=== PATIENT | female | born 1990 | race Caucasian/White ===

== ENCOUNTER 2019-10-18 13:40 | Inpatient (IN) | payer OTHER ==
[~2019-10-18] VITALS: Ht 152.4 cm; Wt 64.9 kg
[2019-10-18] MEDS ORDERED: RINGERS SOLUTION,LACTATED 1,000 ML IV SCH (14:19)
[2019-10-18] MEDS ORDERED: RINGERS SOLUTION,LACTATED 1,000 ML IV PRN (14:19)
[2019-10-18] MEDS ORDERED: OXYTOCIN 30 UNITS/LACT RINGERS 500 ML IV ONE (14:19)
[2019-10-18] MEDS ORDERED: RINGERS SOLUTION,LACTATED 1,000 ML IV ONE (14:28)
[2019-10-18] MEDS ORDERED: MISOPROSTOL 25 MCG TABLET PO SCH (14:30)
[2019-10-18] MEDS ORDERED: METOCLOPRAMIDE HCL 5 MG/ML 2 ML VIAL IVP PRN (14:30)
[2019-10-18] MEDS ORDERED: FentaNYL CITRATE-PF 100 MCG/2 ML VIAL IVP PRN (14:30)
[2019-10-18] MEDS ORDERED: METHYLERGONOVINE MALEATE 0.2 MG/ML VIAL IM PRN (14:30)
[2019-10-18] MEDS ORDERED: CITRIC ACID/SODIUM CITRATE 30 ML SOLUTION UDCUP PO PRN (14:30)
[2019-10-18] MEDS ORDERED: TERBUTALINE SULFATE 1 MG/ML VIAL SQ PRN (14:30)
[2019-10-18 15:10] LABS: BASOPHILS % (AUTO) 0.3 % (0.0-2.0); EOSINOPHILS % (AUTO) 0.3 % (1.0-6.0); HEMATOCRIT 35.6 % (36-46); HEMOGLOBIN 11.6 g/dL (12.0-16.0); LYMPHOCYTES # (AUTO) 1.7 K/uL (1.0-4.8); LYMPHOCYTES % (AUTO) 19.8 % (22.0-44.0); MEAN CORPUSCULAR HEMOGLOBIN 26.9 pg (26.0-34.0); MEAN CORPUSCULAR HGB CONC 32.7 G/dL (31.0-37.0); MEAN CORPUSCULAR VOLUME 82 fL (80-100); MONOCYTES # (AUTO) 0.6 K/uL (0.1-1.0); MONOCYTES % (AUTO) 6.5 % (2.0-9.0); NEUTROPHILS # (AUTO) 6.2 K/uL (1.8-7.7); NEUTROPHILS % (AUTO) 73.1 % (40.0-70.0); PLATELET COUNT (AUTO)-OB 258 K/uL (150-450); RED BLOOD CELL COUNT(AUTO) 4.33 MIL/uL (4.00-5.20)
[2019-10-18 15:42] VITALS: BP 105/65
[2019-10-18] MEDS: RINGERS SOLUTION,LACTATED 1,000 ML IV SCH ×3 (16:07→23:23)
[2019-10-18] MEDS ORDERED: OXYGEN THERAPY IH SCH (20:00)
[2019-10-18] MEDS ORDERED: OXYTOCIN 30 UNITS/LACT RINGERS 500 ML IV PRN (20:16)
[2019-10-18] MEDS ORDERED: ROPIVACAINE HCL/PF 0.2% 100 ML ED ONE (22:19)
[2019-10-18] MEDS ORDERED: ROPIVACAINE HCL/PF 0.2% 100 ML ED PRN (22:42)
[2019-10-18] MEDS ORDERED: DiphenhydrAMINE HCL 50 MG/ML VIAL IVP PRN (22:45)
[2019-10-18] MEDS ORDERED: NALBUPHINE HCL 10 MG/ML VIAL IVP PRN (22:45)
[2019-10-18] MEDS ORDERED: ONDANSETRON HCL 4 MG/2 ML VIAL IVP PRN (22:45)
[2019-10-19] MEDS: RINGERS SOLUTION,LACTATED 1,000 ML IV SCH (00:45)
[2019-10-19] MEDS ORDERED: RINGERS SOLUTION,LACTATED 1,000 ML IV ONE (03:58)
[2019-10-19] MEDS ORDERED: BENZOCAINE 20%/MENTHOL 56 GM SPRAY CANISTER TP PRN (04:00)
[2019-10-19] MEDS ORDERED: OxyCODONE HCL/ACETAMINOPHEN 5-325 MG TABLET PO PRN ×2 (04:00)
[2019-10-19] MEDS ORDERED: GLYCERIN/WITCH HAZEL LEAF 40 PADS JAR TP PRN (04:00)
[2019-10-19] MEDS ORDERED: MEASLES/MUMPS/RUBELLA VACCINE, LIVE 0.5 ML/VIAL SQ ONE (04:00)
[2019-10-19] MEDS ORDERED: LANOLIN 7 GM OINTMENT TP PRN (04:00)
[2019-10-19] MEDS: IBUPROFEN 600 MG TABLET PO PRN ×3 (07:22→22:31)
[2019-10-19] MEDS: MAGNESIUM HYDROXIDE SUSPENSION 30 ML UDCUP PO SCH (21:00)
[2019-10-20] MEDS: IBUPROFEN 600 MG TABLET PO PRN (07:47)
[2019-10-20] MEDS ORDERED: IBUP-2070 PO (10:22)
[2019-10-20] MEDS ORDERED: DOCU-275 PO (10:24)
[2019-10-20] MEDS ORDERED: PREN1TAB80 PO (10:26)
== END 2019-10-20 12:05 | disposition home or self-care (01) | DRG 560 ==
LOC: 4S 13:40 → OBSVTOIN 13:40
PROVIDERS: ADMIT Obstetrics & Gynecology; ATTEND Obstetrics & Gynecology
PROC: 10E0XZZ Delivery of Products of Conception, External Approach (ICD-10-PCS; principal; 2019-10-19)
PROC: 3E0R3BZ Introduction of Anesthetic Agent into Spinal Canal, Percutaneous Approach (ICD-10-PCS; 2019-10-19)
PROC: 00HU33Z Insertion of Infusion Device into Spinal Canal, Percutaneous Approach (ICD-10-PCS; 2019-10-19)
PROC: 10907ZC Drainage of Amniotic Fluid, Therapeutic from Products of Conception, Via Natural or Artificial Opening (ICD-10-PCS; 2019-10-19)
DX: O80 Encounter for full-term uncomplicated delivery (principal); Z37.0 Single live birth; Z3A.40 40 weeks gestation of pregnancy
CPT/HCPCS: 86850; 86900; 86901; J2590; J2795; J7120